=== PATIENT | female | born 1950 | race Caucasian/White ===

== ENCOUNTER → 2020-05-13 10:49 | Outpatient (BNVA) | payer SELFPAY | PROVIDERS: Visit Provider Internal Medicine ==

== ENCOUNTER → 2021-05-13 10:10 | Outpatient (BNVA) | payer SELFPAY | PROVIDERS: Visit Provider Internal Medicine | DX: Z02.79 Encounter for issue of other medical certificate (principal) ==

== ENCOUNTER → 2022-05-12 10:06 | Outpatient (BNVA) | payer SELFPAY | PROVIDERS: Visit Provider Internal Medicine | DX: Z02.79 Encounter for issue of other medical certificate (principal) ==

== ENCOUNTER → 2022-12-22 10:41 | Outpatient (BNVA) | payer SELFPAY | PROVIDERS: Visit Provider Physician Assistant Medical | DX: Z02.79 Encounter for issue of other medical certificate (principal) ==

== ENCOUNTER → 2023-06-14 10:05 | Outpatient (BNVA) | payer SELFPAY | PROVIDERS: Visit Provider Internal Medicine | DX: Z02.79 Encounter for issue of other medical certificate (principal) ==

== ENCOUNTER → 2023-12-11 14:42 | Outpatient (BNVA) | payer SELFPAY | PROVIDERS: Visit Provider Registered Nurse | DX: Z02.79 Encounter for issue of other medical certificate (principal) ==

== ENCOUNTER → 2024-06-07 15:21 | Outpatient (BNVA) | payer SELFPAY | PROVIDERS: Visit Provider Physician Assistant | DX: Z02.79 Encounter for issue of other medical certificate (principal) ==

== ENCOUNTER → 2024-12-11 15:16 | Outpatient (BNVA) | payer SELFPAY | PROVIDERS: Visit Provider Physician Assistant | DX: Z02.79 Encounter for issue of other medical certificate (principal) ==

== ENCOUNTER → 2025-06-11 10:20 | Outpatient (BNVA) | payer SELFPAY | PROVIDERS: Visit Provider Physician Assistant Medical | DX: Z02.79 Encounter for issue of other medical certificate (principal) ==